=== PATIENT | male | born 1965 | race Caucasian/White ===

== ENCOUNTER 2017-11-05 12:32 | Emergency (ER) | payer OTHER ==
[~2017-11-05] VITALS: Ht 177.8 cm; Wt 97.7 kg
[2017-11-05 12:36] VITALS: TEMP 97.8
[2017-11-05] MEDS ORDERED: CIALIS10 MG PO (12:41)
[2017-11-05] MEDS ORDERED: COLCRYS0.6 MG PO (12:41)
[2017-11-05] MEDS ORDERED: LIPITOR 10MG10 MG PO (12:42)
[2017-11-05] MEDS ORDERED: HYGROTON 2525 MG/TAB (12:42)
[2017-11-05] MEDS ORDERED: ZYRTEC 10MG10 MG PO (12:42)
[2017-11-05] MEDS ORDERED: MYRBETR25MG PO (12:43)
[2017-11-05] MEDS ORDERED: AMITRIPTYLINE H10 M1 PO (12:43)
[2017-11-05] MEDS ORDERED: ROBAXIN 50500 MG/TAB PO (12:43)
[2017-11-05] MEDS ORDERED: TREXIMET 10-601 EACH PO (12:44)
[2017-11-05] MEDS ORDERED: SYNTHROID 0.0.025 MG PO (12:44)
[2017-11-05 14:07] VITALS: BP 131/87; PULSE 70
== END 2017-11-05 14:07 | disposition home or self-care (01) ==
LOC: COL.ER 12:32
DX: T65.91XA Toxic effect of unspecified substance, accidental (unintentional), initial encounter (principal); I10 Essential (primary) hypertension; E78.5 Hyperlipidemia, unspecified